=== PATIENT | female | born 1995 | race Caucasian/White ===

== ENCOUNTER 2020-02-02 16:36 | Outpatient (REF) | payer OTHER, SELFPAY | END 2020-02-02 16:37 | disposition home or self-care (01) | LOC: HO.LNP 16:36 | PROVIDERS: Visit Provider Nurse Practitioner Family | DX: Z20.828 Contact with and (suspected) exposure to other viral communicable diseases (principal) | CPT/HCPCS: U0003 ==

== ENCOUNTER 2020-02-04 11:12 | Outpatient (REF) | payer OTHER, SELFPAY ==
[2020-02-04 14:05] LABS: MANUAL DIFF FLAG NO
[2020-02-04 14:07] LABS: Basophils Percent Auto 0.6 % (0-2); Eosinophils Absolute Auto 0.2 X10*3/uL (0.0-0.4); Eosinophils Percent Auto 3.5 % (0-4); Hematocrit 41.2 % (37-47); Hemoglobin 14.1 g/dl (12.0-16.0); Imm Gran Abs Auto 0.02 X10*3/uL (0.00-0.03); Imm Gran Pct Auto 0.3 % (0.0-0.4); Lymphocytes Absolute Auto 2.8 X10*3/uL (1.2-4.9); Lymphocytes Percent Auto 41.6 % (20-40); Mean Corpuscular HGB Conc 34.2 g/dl (31.0-35.0); Mean Corpuscular Hemoglobin 33.9 pg (27.0-33.0); Mean Platelet Volume 10.2 fL (9.4-12.3); Monocytes Absolute Auto 0.6 X10*3/uL (0.1-1.2); Monocytes Percent Auto 8.8 % (2-11); Neutrophils Absolute Auto 3.1 X10*3/uL (2.0-8.3); Neutrophils Percent Auto 45.2 % (45-73); Platelet Count 379 X10*3/uL (160-400); Red Blood Count 4.16 X10*6/uL (4.20-5.50); Red Cell Distribution Width 11.7 % (11.0-16.0); White Blood Count 6.8 X10*3/uL (4.8-10.8)
[2020-02-04 14:41] LABS: Anion Gap 13 (12-20); Blood Urea Nitrogen 9 mg/dL (9-16); Calcium 9.5 mg/dL (8.4-10.2); Carbon Dioxide 27 mmol/L (22-29); Chloride 100 mmol/L (96-108); Cholesterol 224 mg/dL; Estimated Glomerular Filt Rate > 60; Glucose Fasting 89 mg/dL (60-99); HDL Cholesterol 93 mg/dL; LDL Cholesterol Calculated 121 mg/dl; Potassium 4.4 mmol/l (3.3-5.1); Sodium 136 mmol/L (135-145); Triglycerides 52 mg/dL
[2020-02-04 15:00] LABS: TSH reflex Free T4 0.65 mIU/mL (0.32-4.0)
== END 2020-02-04 11:13 | disposition home or self-care (01) ==
LOC: HO.HMGCLDS 11:12
PROVIDERS: PCP Internal Medicine; Visit Provider Nurse Practitioner Family
DX: R11.2 Nausea with vomiting, unspecified (principal)
CPT/HCPCS: 36415; 80048; 80061; 84443; 85025

== ENCOUNTER 2021-05-25 10:31 | Outpatient (REF) | payer OTHER, SELFPAY ==
[2021-05-25 11:43] LABS: MANUAL DIFF FLAG NO
[2021-05-25 11:50] LABS: Basophils Absolute Auto 0.1 X10*3/uL (0.0-0.2); Basophils Percent Auto 0.7 % (0-2); Eosinophils Absolute Auto 0.3 X10*3/uL (0.0-0.4); Eosinophils Percent Auto 3.1 % (0-4); Hemoglobin 13.2 g/dl (12.0-16.0); Imm Gran Abs Auto 0.02 X10*3/uL (0.00-0.03); Imm Gran Pct Auto 0.2 % (0.0-0.4); Lymphocytes Absolute Auto 2.2 X10*3/uL (1.2-4.9); Lymphocytes Percent Auto 24.2 % (20-40); Mean Corpuscular HGB Conc 34.7 g/dl (31.0-35.0); Mean Corpuscular Hemoglobin 34.5 pg (27.0-33.0); Mean Corpuscular Volume 99.2 fL (80.0-98.0); Mean Platelet Volume 9.9 fL (9.4-12.3); Monocytes Absolute Auto 0.6 X10*3/uL (0.1-1.2); Monocytes Percent Auto 6.5 % (2-11); Neutrophils Percent Auto 65.3 % (45-73); Platelet Count 345 X10*3/uL (160-400); Red Blood Count 3.83 X10*6/uL (4.20-5.50); Red Cell Distribution Width 11.5 % (11.0-16.0); White Blood Count 9.2 X10*3/uL (4.8-10.8)
[2021-05-25 12:12] LABS: Alanine Aminotransferase 14 U/L (0-31); Albumin Level 4.1 g/dL (3.5-5.0); Alkaline Phosphatase 44 U/L (39-117); Anion Gap 10 (12-20); Aspartate Amino Transferase 14 U/L (5-31); Bilirubin Total 0.4 mg/dL (0.0-1.0); Blood Urea Nitrogen 8 mg/dL (9-16); Calcium 8.7 mg/dL (8.4-10.2); Carbon Dioxide 25 mmol/L (22-29); Chloride 105 mmol/L (96-108); Cholesterol 167 mg/dL; Estimated Glomerular Filt Rate > 60; Glucose Fasting 85 mg/dL (60-99); HDL Cholesterol 68 mg/dL; LDL Cholesterol Calculated 93 mg/dl; Potassium 4.2 mmol/L (3.3-5.1); Sodium 136 mmol/L (135-145); Total Protein 6.5 g/dL (6.5-8.0); Triglycerides 33 mg/dL
[2021-05-25 12:33] LABS: TSH reflex Free T4 0.46 uIU/mL (0.32-4.0)
== END 2021-05-25 10:32 | disposition home or self-care (01) ==
LOC: HO.HMGCLDS 10:31
PROVIDERS: PCP Internal Medicine; Visit Provider Internal Medicine
DX: Z00.01 Encounter for general adult medical examination with abnormal findings (principal); F90.9 Attention-deficit hyperactivity disorder, unspecified type
CPT/HCPCS: 36415; 80053; 80061; 84443; 85025

== ENCOUNTER 2023-06-10 15:19 | Outpatient (AMB) | payer OTHER, SELFPAY ==
--- NOTE | 2023-06-10 15:22 | A.OFFPC_ITS ---
Vital Signs 06/10/23 15:23 Height 5 ft 2 in Weight 155 lb 8 oz BMI 28.4 BP 122/70 Blood Pressure Location Rt brachial Position Sitting Pulse 83 Pulse Source Pulse Oximeter Pulse Oximetry (%) 99 Oxygen Delivery Method Room Air Intake Visit Reasons: Annual PE Is last menstrual period known: No Allergies cats, dogs, pollen, mold, glut Allergy (Unknown, Uncoded 05/22/21 10:47) itchy eyes, upper respiratory congestion nickel Allergy (Unknown, Uncoded 05/22/21 10:47) rash Medication List - Last Reconciled 06/10/23 by Grayson Garza MD bupropion HCl XL 300 mg PO QAM 90 days Tobacco use date assessed: 06/10/23 Dental Screening Dental Screen Date: 06/10/23 Did you have a dental visit in the last 12 months?: Yes Did you have a dental problem in the last 6 months where you did not have access to dental care?: No Was dental information given to patient?: Patient has dentist HPI Annual PE HPI Details Patient is 18-year-old female came in today for her annual physical exam Patient suffer from ADHD and is on medication through Psychiatry She is in need of new OBGYN, patient had IUD placed 2 years ago and she wants that removed BMI is elevated placed order for labs to be done fasting She offer no complaints today [facility] Medical History Establishing care with new doctor, encounter for ADHD Surgical History No pertinent past surgical history Family History Father Pancreatic cancer Mother Heart murmur Other Mental health disorder Substance use disorder Social History Housing: Apartment Alcohol intake: current Alcohol intake frequency: a few times a week Patient Tobacco Use Status: Current someday Tobacco user Tobacco use type: Cigarette Years Smoked: 3 years e-Cigarette/Vaping Use: Former Use service: No Current occupational status: employed Cognitive needs: No Hearing needs: No Vision needs: No Questionnaire PHQ-9 Over the last 2 weeks, how often have you been bothered by any of the following problems? 1. Little interest or pleasure in doing things: not at all 2. Feeling down, depressed, or hopeless: not at all 3. Trouble falling or staying asleep, or sleeping too much: not at all 4. Feeling tired or having little energy: several days 5. Poor appetite or overeating: several days 6. Feeling bad about yourself - or that you are a failure or have let yourself or your family down: several days 7. Trouble concentrating on things, such as reading the newspaper or watching television: several days 8. Moving or speaking so slowly that other people could have noticed. Or the opposite - being so fidgety or restless that you have been moving around a lot more than usual: several days 9. Thoughts that you would be better off or of hurting yourself in some way: several days Total score: 6 Depression Screening Interpretation: Negative Depression Screening Done: Yes 60323 - PHQ-9 Billing: Yes Source: Developed by Drs. Parish Altamirano, Yolanda Ring, Brandon Wilkerson and colleagues, with an educational oni from [employer] - [place]. Thrive Questionnaire Date Thrive assessed: 06/10/23 I am a: Patient What is your living situation today?: I have a steady place to live Within the past 12 months, did the food you bought not last and you didn't have the money to get more?: Never true Within the past 12 months, did you worry whether your food would run out before you got money to buy more?: Never true Do you have trouble paying for medicines?: No Do you have trouble getting transportation to medical appointments?: No Do you have trouble paying your heating and electricity bill?: No Do you have trouble taking care of your child, family member or friend?: No Do you have trouble with day-to-day activities such as bathing, preparing meals, shopping, managing finances, etc.?: No Are you currently unemployed and looking for a job?: No Are you interested in more education?: No Please select the resources that you would like help with: None Currently or been in a relationship where the following occur: no concerns reported THRIVE Score: 0 AUDIT C Alcohol Use Questionnaire (AUDIT-C) 1. How often do you have a drink containing alcohol?: Monthly or less 2. How many drinks containing alcohol do you have on a typical day when you are drinking?: 1 or 2 3. How often do you have six or more drinks on one occasion?: Never Total Score: 1 Score Reviewed/Action Taken: Yes GERTRUDE-7 AMB Questionnaire GERTRUDE-7 Date GERTRUDE - 7 assessed: 06/10/23 Feeling nervous, anxious, or on edge: 1 = Several days Not being able to stop or control worryin = Several days Worrying too much about different things: 1 = Several days Trouble relaxin = Several days Being so restless that it is hard to sit still: 2 = More than half the days Becoming easily annoyed or irritable: 1 = Several days Feeling afraid as if something awful might happen: 0 = Not at all Total GERTRUDE-7 score (0-4 normal; 5-9 mild; 10-14 moderate; 15-21 severe): 7 Source: Developed by Drs. Parish Altamirano, Yolanda Ring, Brandon Wilkerson and colleagues, with an educational oni from [employer] - [place]. GERTRUDE-7 Assessment Billing GERTRUDE-7 Assessment Tool: GERTRUDE-7 Assessment 96035 Review of Systems Const Denies chills, Denies fever(s) and Denies headache(s) Eyes Denies blurry vision ENT Denies headache(s), Denies nasal discharge, Denies nasal obstruction, Denies odynophagia and Denies sinus pain Card Denies chest pain at rest and Denies chest pain with activity Resp Denies cough and Denies hemoptysis GI Denies diarrhea, Denies odynophagia, Denies vomiting and Denies hematemesis Reports as per HPI Musc Denies abnormal gait Skin/Breast Reports as per HPI Neuro Denies Neuro-related abnormal movements, Denies Abnormal speech present, Denies abnormal gait, Denies headache(s) and Denies Sensory deficit (Neuro) Psych Denies mood swings and Denies paranoia Endo Reports as per HPI Nolberto/Lymph Reports as per HPI Aller/Immun Reports as per HPI Physical exam (Primary Care) Vital Signs: Last Vital Signs Pulse 83 06/10/23 15:23 BP 122/70 06/10/23 15:23 Pulse Ox 99 06/10/23 15:23 Oxygen Delivery Method Room Air 06/10/23 15:23 BMI result Body Mass Index 28.4 Tobacco/Smoking Status: Tobacco use Status Tobacco use date assessed 06/10/23 06/10/23 15:26 Patient Tobacco Use Status Current someday Tobacco 06/10/23 15:26 Tobacco use type Cigarette 06/10/23 15:26 e-Cigarette/Vaping Use Former Use 06/10/23 15:26 PHQ-9: PHQ-9 Score PHQ-9: Total score 6 06/10/23 15:48 Depression Screening Interpretation: Negative Thrive Assessment: Date of Thrive Assessment Date Thrive assessed 06/10/23 06/10/23 15:46 Currently or been in a relationship where the following occur: no concerns reported Const General: cooperative, comfortable and no acute distress Orientation/consciousness: patient oriented x3 HENMT Head: Yes normocephalic and Yes atraumatic Eyes General: appearance normal, both eyes and all related structures Pupils: Equal, round and reactive pupils present EOM: EOMs intact bilaterally Neck Neck: Yes supple and No lymphadenopathy Thyroid: Thyroid normal Lymphatic: no lymphadenopathy noted Resp Effort & Inspection: normal respiratory effort and able to speak in complete sentences Auscultation: clear to auscultation bilaterally Cardio Heart sounds: S1 normal heart sound present and S2 normal heart sound present GI Palpation (GI): Soft to palpation and nontender Auscultation: normal bowel sounds General: Yes no CVA tenderness Back/Spine/Pelvis Back: no CVA tenderness Skin General skin exam: elasticity normal and turgor normal Neuro General: patient oriented x3 and gait normal Cranial nerves: Yes Equal, round and reactive pupils present Speech: No Abnormal speech present Sensory Exam: No Sensory deficit (Neuro) Coordination: tandem gait normal and Romberg test negative Extrem General: Yes normal exam except as noted and No edema Assessment and Plan Assessment & Plan (1) Encounter for general adult medical examination with abnormal findings: Code(s): Z00.01 - Encounter for general adult medical examination with abnormal findings (2) ADHD: Code(s): F90.9 - Attention-deficit hyperactivity disorder, unspecified type Qualifiers: Attention deficit-hyperactivity disorder type: unspecified Qualified Code(s): F90.9 - Attention-deficit hyperactivity disorder, unspecified type (3) Overweight (BMI 25.0-29.9): Code(s): E66.3 - Overweight Plan Patient is 18-year-old female came in today for her annual physical exam Patient suffer from ADHD and is on medication through Psychiatry She is in need of new OBGYN, patient had IUD placed 2 years ago and she wants that removed BMI is elevated placed order for labs to be done fasting She offer no complaints today Orders: Orders Comprehensive [place]. Panel Fast Today E66.3 - Overweight, F90.9 - Attention- deficit hyperactivity disorder, unspecified type, Z00.01 - Encounter for general adult medical examination with abnormal findings Lipid Panel Today E66.3 - Overweight, F90.9 - Attention-deficit hyperactivity disorder, unspecified type, Z00.01 - Encounter for general adult medical examination with abnormal findings Complete Blood Count Auto Diff Today E66.3 - Overweight, F90.9 - Attention- deficit hyperactivity disorder, unspecified type, Z00.01 - Encounter for general adult medical examination with abnormal findings Coding Level of Care Code Est Pt Prev Care 18-39y(94875) Diagnoses Encounter for general adult medical examination with abnormal findings Z00.01 Attention deficit hyperactivity disorder (ADHD), unspecified ADHD type F90.9 Attention deficit-hyperactivity disorder type: unspecified Overweight (BMI 25.0-29.9) E66.3 Additional Codes GERTRUDE-7 Assessment Billing - GERTRUDE-7 Assessment Tool: GERTRUDE-7 Assessment 75674 ([id number])
[2023-06-10 15:23] VITALS: BP 122/70; PULSE 83; O2SAT 99; BMI 28.4
== END 2023-06-10 15:50 | disposition home or self-care (01) ==
PROVIDERS: Visit Provider Internal Medicine
DX: Z00.00 Encounter for general adult medical examination without abnormal findings (principal); F90.9 Attention-deficit hyperactivity disorder, unspecified type; E66.3 Overweight; Z68.28 Body mass index [BMI] 28.0-28.9, adult
CPT/HCPCS: 99395

== ENCOUNTER 2023-06-19 12:03 | Outpatient (REF) | payer OTHER, SELFPAY ==
[2023-06-19 13:09] LABS: MANUAL DIFF FLAG NO
[2023-06-19 13:18] LABS: Basophils Absolute Auto 0.1 X10*3/uL (0.0-0.2); Basophils Percent Auto 0.7 % (0-2); Eosinophils Absolute Auto 0.6 X10*3/uL (0.0-0.4); Eosinophils Percent Auto 8.2 % (0-4); Hematocrit 38.7 % (37.0-47.0); Hemoglobin 13.1 g/dl (12.0-16.0); Imm Gran Abs Auto 0.02 X10*3/uL (0.00-0.03); Imm Gran Pct Auto 0.3 % (0.0-0.4); Lymphocytes Absolute Auto 2.4 X10*3/uL (1.2-4.9); Lymphocytes Percent Auto 35.3 % (20-40); Mean Corpuscular HGB Conc 33.9 g/dl (31.0-35.0); Mean Corpuscular Hemoglobin 33.8 pg (27.0-33.0); Mean Corpuscular Volume 99.7 fL (80.0-98.0); Mean Platelet Volume 9.9 fL (9.4-12.3); Monocytes Absolute Auto 0.6 X10*3/uL (0.1-1.2); Monocytes Percent Auto 8.2 % (2-11); Neutrophils Absolute Auto 3.2 x10*3/uL (2.0-8.3); Neutrophils Percent Auto 47.3 % (45-73); Platelet Count 337 X10*3/uL (160-400); Red Blood Count 3.88 X10*6/uL (4.20-5.50); Red Cell Distribution Width 11.9 % (11.0-16.0); White Blood Count 6.8 X10*3/uL (4.8-10.8)
[2023-06-19 13:50] LABS: Alanine Aminotransferase 12 U/L (0-31); Alkaline Phosphatase 42 U/L (39-117); Anion Gap 11 (12-20); Aspartate Amino Transferase 13 U/L (5-31); Bilirubin Total 0.5 mg/dL (0.0-1.0); Blood Urea Nitrogen 5 mg/dL (9-16); Calcium 9.4 mg/dL (8.4-10.2); Carbon Dioxide 26 mmol/L (22-29); Chloride 105 mmol/L (96-108); Cholesterol 166 mg/dL (<200); Estimated Glomerular Filt Rate > 60; Glucose Fasting 92 mg/dL (60-99); HDL Cholesterol 61 mg/dL (>40); LDL Cholesterol Calculated 93 mg/dL (<100); Potassium 3.9 mmol/L (3.3-5.1); Sodium 138 mmol/L (135-145); Total Protein 6.4 g/dL (6.5-8.0); Triglycerides 61 mg/dL (<150)
== END 2023-06-19 12:04 | disposition home or self-care (01) ==
LOC: HO.HMGCLDS 12:03
PROVIDERS: PCP Internal Medicine; Visit Provider Internal Medicine
DX: Z00.01 Encounter for general adult medical examination with abnormal findings (principal); E66.3 Overweight; F90.9 Attention-deficit hyperactivity disorder, unspecified type
CPT/HCPCS: 36415; 80053; 80061; 85025

== ENCOUNTER 2024-06-22 12:25 | Outpatient (AMB) | payer OTHER, SELFPAY ==
[2024-06-22 12:33] VITALS: BP 118/74; PULSE 84; O2SAT 99; BMI 28.8
--- NOTE | 2024-06-22 12:33 | MHC.PC.OV ---
Vital Signs 06/22/24 12:33 Height 5 ft 2 in Weight 157 lb 8 oz BMI 28.8 BP 118/74 Blood Pressure Location Lt brachial Position Sitting Pulse 84 Pulse Source Pulse Oximeter Pulse Oximetry (%) 99 Oxygen Delivery Method Room Air Intake Visit Reasons: Annual PE Allergies cats, dogs, pollen, mold, glut Allergy (Unknown, Uncoded 06/22/24 12:35) itchy eyes, upper respiratory congestion nickel Allergy (Unknown, Uncoded 06/22/24 12:35) rash Medication List - Last Reconciled 06/22/24 by Grayson Garza MD dextroamphetamine-amphetamine 10 mg 1 tab PO DAILY Tobacco use date assessed: 06/22/24 Dental Screening Dental Screen Date: 06/22/24 Did you have a dental visit in the last 12 months?: Yes Did you have a dental problem in the last 6 months where you did not have access to dental care?: No Was dental information given to patient?: Patient has dentist HPI Annual PE HPI Details Physical exam appointment - The patient is a 28-year-old female presenting for a wellness exam and follow-up on existing conditions. - The patient reported having celiac disease, diagnosed in childhood, and has been managing it independently, doing well avoiding gluten and following a grain-free diet. - Symptoms previously associated with celiac disease included bloating, joint pain, constipation (as opposed to diarrhea), and rare occurrences of rash, last reported approximately 10 years ago. - The patient had an IUD removed in the past; specific timeline not recalled. Goes to [facility] in [facility] - The patient expressed curiosity about vitamin levels, specifically vitamin D due to the association of deficiencies in patients with celiac disease. - Prior labs conducted in June of the previous year showed normal CBC, electrolytes, kidney function, liver enzymes, and cholesterol levels. Health Maintenance - The patient expressed interest in assessing vitamin D levels, and I will include a check for vitamin B due to the relationship with celiac disease. - Discussion on the importance of a gluten-free diet and vitamin supplements due to celiac disease. - Recommendation for annual lab tests to monitor overall health as part of routine wellness examination. - continue follow up with [facility] Patient Instructions - Schedule annual physical exams. - Follow a gluten-free diet due to celiac disease. - Follow up with lab testing, including checking vitamin D and B levels. - If any health concerns arise, the patient should contact the clinic. Review of Systems - General: No fever no chills - Neurological: No headaches no dizziness - Ear nose throat: No sore throat no hearing difficulty no ear pain - Cardiovascular: No syncope, no chest pain, no palpitations - Gastrointestinal: No nausea vomiting or diarrhea - Endocrine: No polyuria polydipsia no heat intolerance - Genitourinary: No dysuria - Skin: No new complaints Physical Exam General: Cooperative, healthy appearing, comfortable, no acute distress Orientation: Patient oriented x3 Limitations: None Head: Normal to inspection Ears: Within normal limit visually Nose: Normal external nose present Face and sinus: Normal facial exam Eyes: Appearance normal, extraocular movement intact pupils reactive Neck: Normal visual inspection and supple Respiratory: Normal respiratory effort and able to speak in complete sentences. Clear to auscultation, no stridor Cardiovascular: S1 and S2 RRR Breast exam benign GI: Normal to inspection. Soft to palpation and nontender Skin: Turgor normal, no acute findings, Neuro: Patient oriented x3, motor sensory intact, balance intact, tandem pass Extremities: Normal to inspection, range of motion joints intact [facility] Medical History Establishing care with new doctor, encounter for ADHD Surgical History No pertinent past surgical history Family History Father Pancreatic cancer Mother Heart murmur Other Mental health disorder Substance use disorder Social History Housing: Apartment Alcohol intake: current Alcohol intake frequency: a few times a week Patient Tobacco Use Status: Current someday Tobacco user Tobacco use type: Cigarette Years Smoked: 3 years e-Cigarette/Vaping Use: Former Use service: No Current occupational status: employed Cognitive needs: No Hearing needs: No Vision needs: No Questionnaire PHQ-9 Over the last 2 weeks, how often have you been bothered by any of the following problems? 1. Little interest or pleasure in doing things: not at all 2. Feeling down, depressed, or hopeless: not at all 3. Trouble falling or staying asleep, or sleeping too much: several days 4. Feeling tired or having little energy: several days 5. Poor appetite or overeating: several days 6. Feeling bad about yourself - or that you are a failure or have let yourself or your family down: not at all 7. Trouble concentrating on things, such as reading the newspaper or watching television: several days 8. Moving or speaking so slowly that other people could have noticed. Or the opposite - being so fidgety or restless that you have been moving around a lot more than usual: not at all 9. Thoughts that you would be better off or of hurting yourself in some way: not at all Total score: 4 Depression Screening Interpretation: Negative Depression Screening Done: Yes 29599 - PHQ-9 Billing: Yes Source: Developed by Drs. Parish Altamirano, Yolanda Ring, Brandon Wilkerson and colleagues, with an educational oni from [employer]. Thrive Questionnaire Date Thrive assessed: 06/22/24 I am a: Patient What is your living situation today?: I have a steady place to live Within the past 12 months, did the food you bought not last and you didn't have the money to get more?: Never true Within the past 12 months, did you worry whether your food would run out before you got money to buy more?: Never true Do you have trouble paying for medicines?: No Do you have trouble getting transportation to medical appointments?: No Do you have trouble paying your heating and electricity bill?: No Do you have trouble taking care of your child, family member or friend?: No Do you have trouble with day-to-day activities such as bathing, preparing meals, shopping, managing finances, etc.?: No Are you currently unemployed and looking for a job?: No Are you interested in more education?: No Please select the resources that you would like help with: None Currently or been in a relationship where the following occur: No concerns reported THRIVE Score: 0 AUDIT C Alcohol Use Questionnaire (AUDIT-C) 1. How often do you have a drink containing alcohol?: Monthly or less 2. How many drinks containing alcohol do you have on a typical day when you are drinking?: 1 or 2 3. How often do you have six or more drinks on one occasion?: Less than monthly Total Score: 2 Score Reviewed/Action Taken: Yes GERTRUDE-7 AMB Questionnaire GERTRUDE-7 Date GERTRUDE - 7 assessed: 06/22/24 Feeling nervous, anxious, or on edge: 1 = Several days Not being able to stop or control worryin = Not at all Worrying too much about different things: 0 = Not at all Trouble relaxin = Several days Being so restless that it is hard to sit still: 1 = Several days Becoming easily annoyed or irritable: 1 = Several days Feeling afraid as if something awful might happen: 0 = Not at all Total GERTRUDE-7 score (0-4 normal; 5-9 mild; 10-14 moderate; 15-21 severe): 4 Source: Developed by Drs. Parish Altamirano, Yolanda Ring, Brandon Wilkerson and colleagues, with an educational oni from [employer]. GERTRUDE-7 Assessment Billing GERTRUDE-7 Assessment Tool: GERTRUDE-7 Assessment 15301 Physical exam (Primary Care) Vital Signs: Last Vital Signs Pulse 84 06/22/24 12:33 BP 118/74 06/22/24 12:33 Pulse Ox 99 06/22/24 12:33 Oxygen Delivery Method Room Air 06/22/24 12:33 BMI result Body Mass Index 28.8 Tobacco/Smoking Status: Tobacco use Status Tobacco use date assessed 06/22/24 06/22/24 12:37 Patient Tobacco Use Status Current someday Tobacco 06/22/24 12:37 Tobacco use type Cigarette 06/22/24 12:37 e-Cigarette/Vaping Use Former Use 06/22/24 12:37 PHQ-9: PHQ-9 Score PHQ-9: Total score 4 06/22/24 12:52 Depression Screening Interpretation: Negative Thrive Assessment: Date of Thrive Assessment Date Thrive assessed 06/22/24 06/22/24 12:37 Currently or been in a relationship where the following occur: No concerns reported Coding Level of Care Code Est Pt Level 3 (63843) Est Pt Prev Care 18-39y(04025) Diagnoses Encounter for general adult medical examination with abnormal findings Z00.01 Celiac disease K90.0 Overweight (BMI 25.0-29.9) E66.3 Attention deficit hyperactivity disorder (ADHD), unspecified ADHD type F90.9 Attention deficit-hyperactivity disorder type: unspecified Additional Codes GERTRUDE-7 Assessment Billing - GERTRUDE-7 Assessment Tool: GERTRUDE-7 Assessment 53524 ([id number]) PHQ-9 - 98673 - PHQ-9 Billing: Yes ([id number]) Assessment & Plan Assessment & Plan (1) Encounter for general adult medical examination with abnormal findings: Code(s): Z00.01 - Encounter for general adult medical examination with abnormal findings Category: Medical (2) Celiac disease: Code(s): K90.0 - Celiac disease Category: Medical (3) Overweight (BMI 25.0-29.9): Code(s): E66.3 - Overweight Category: Medical (4) ADHD: Code(s): F90.9 - Attention-deficit hyperactivity disorder, unspecified type Category: Medical Qualifiers: Attention deficit-hyperactivity disorder type: unspecified Qualified Code(s): F90.9 - Attention-deficit hyperactivity disorder, unspecified type Plan Physical exam appointment - The patient is a 28-year-old female presenting for a wellness exam and follow-up on existing conditions. - The patient reported having celiac disease, diagnosed in childhood, and has been managing it independently, doing well avoiding gluten and following a grain-free diet. - Symptoms previously associated with celiac disease included bloating, joint pain, constipation (as opposed to diarrhea), and rare occurrences of rash, last reported approximately 10 years ago. - The patient had an IUD removed in the past; specific timeline not recalled. [facility] in [facility] - The patient expressed curiosity about vitamin levels, specifically vitamin D due to the association of deficiencies in patients with celiac disease. - Prior labs conducted in June of the previous year showed normal CBC, electrolytes, kidney function, liver enzymes, and cholesterol levels. Health Maintenance - The patient expressed interest in assessing vitamin D levels, and I will include a check for vitamin B due to the relationship with celiac disease. - Discussion on the importance of a gluten-free diet and vitamin supplements due to celiac disease. - Recommendation for annual lab tests to monitor overall health as part of routine wellness examination. - continue follow up with [facility] Patient Instructions - Schedule annual physical exams. - Follow a gluten-free diet due to celiac disease. - Follow up with lab testing, including checking vitamin D and B levels. - If any health concerns arise, the patient should contact the clinic. Orders: Orders Comprehensive [place]. Panel Fast Today E66.3 - Overweight, F90.9 - Attention-deficit hyperactivity disorder, unspecified type, K90.0 - Celiac disease, Z00.01 - Encounter for general adult medical examination with abnormal findings Lipid Panel Today E66.3 - Overweight, F90.9 - Attention-deficit hyperactivity disorder, unspecified type, K90.0 - Celiac disease, Z00.01 - Encounter for general adult medical examination with abnormal findings Vitamin D 25-OH (D2 and D3) Today E66.3 - Overweight, F90.9 - Attention-deficit hyperactivity disorder, unspecified type, K90.0 - Celiac disease, Z00.01 - Encounter for general adult medical examination with abnormal findings Vitamin B12 Today E66.3 - Overweight, F90.9 - Attention-deficit hyperactivity disorder, unspecified type, K90.0 - Celiac disease, Z00.01 - Encounter for general adult medical examination with abnormal findings Folate Today E66.3 - Overweight, F90.9 - Attention-deficit hyperactivity disorder, unspecified type, K90.0 - Celiac disease, Z00.01 - Encounter for general adult medical examination with abnormal findings Complete Blood Count Auto Diff Today E66.3 - Overweight, F90.9 - Attention-deficit hyperactivity disorder, unspecified type, K90.0 - Celiac disease, Z00.01 - Encounter for general adult medical examination with abnormal findings TSH reflex Free T4 Today E66.3 - Overweight, F90.9 - Attention-deficit hyperactivity disorder, unspecified type, K90.0 - Celiac disease, Z00.01 - Encounter for general adult medical examination with abnormal findings UA CC w/rflx Micro + Cult Today E66.3 - Overweight, F90.9 - Attention-deficit hyperactivity disorder, unspecified type, K90.0 - Celiac disease, Z00.01 - Encounter for general adult medical examination with abnormal findings Ferritin Today E66.3 - Overweight, F90.9 - Attention-deficit hyperactivity disorder, unspecified type, K90.0 - Celiac disease, Z00.01 - Encounter for general adult medical examination with abnormal findings
--- OUTSIDE RECORDS SUMMARY | 2024-06-22 13:44 | XMS_ITS | Encounter Summary ---
Author Organization [facility] Address [address] [place] [id number] Phone Care Team Providers Care Inspector And Adjuster [employer] Head Name Role Phone Unavailable Primary Care Provider Unavailabl e Encounter Details Date Type Department Care Team (Late st Contact Info) Description 06/10/2013 Documentation [facility] [place] [address] Family Medicine, [place] [address] Social History Tobacco Use Types Packs/Day Years Used Date Smoking Tobacco: Never Assessed Comments Unknown Sex and Gender Information Value Date Recorded Sex Assigned at Not on file Legal Sex Female 4:55 PM EDT Gender Identity Not on file Sexual Orientation Not on file documented as of this encounter Plan of Treatment Not on file documented as of this encounter Visit Diagnoses Not on filedocumented in this encounter
--- OUTSIDE RECORDS SUMMARY | 2024-06-22 13:44 | XMS_ITS | Encounter Summary ---
Author Organization [facility] Address [address] [place] [phone] Phone Care Team Providers Care Lpc Name Role Phone Unavailable Primary Care Provider Unavailabl e Encounter Details Date Type Department Care Team (Late st Contact Info) Description 05/10/2010 Documentation [facility] [place] Family Medicine [address] [place] [address] Family Medicine, Physician [address] [place] [address] Social History Tobacco Use Types Packs/Day Years [...]
--- OUTSIDE RECORDS SUMMARY | 2024-06-22 13:44 | XMS_ITS | Encounter Summary ---
Author Organization [facility] Address [address] [place] [phone] Phone Care Team Providers Care Vp Of Technology Name Role Phone Unavailable Primary Care Provider Unavailabl e Encounter Details Date Type Department Care Team (Late st Contact Info) Description 10/03/2016 Conversion Encounter [facility] - [address] [address] Social History Tobacco Use Types Packs/Day Years Used Date Smoking Tobacco: Never Comments:Never smoker Comments Unknown Sex and Gender Information Value Date Recorded Sex Assigned at Not on file Legal Sex Female 4:55 PM EDT Gender Identity Not on file Sexual Orientation Not on file documented as of this encounter Plan of Treatment Not on file documented as of this encounter Visit Diagnoses Not on filedocumented in this encounter
--- OUTSIDE RECORDS SUMMARY | 2024-06-22 13:44 | XMS_ITS | Clinical Summary ---
Author Organization [facility] Address [address] [place] [phone] Phone Care Team Providers Care Tax Compliance Representative Name Role Phone Unavailable Primary Care Provider Unavailabl e Immunizations Immunization Administration Dates Next Due DTP 04/23/1995, 5,1993, 994 DTaP 5 08/28/1998 H1N1 02/23/2009 HPV, Quadrivalent 10/16/2007,06/10/2007,03/25/19 08 Hep A, ped/adol 11/22/2008,04/27/2008 Hep B, ped/adol 06/10/1994,1993,1993 Hib (PRP-T) 11/04/1994, 5,1993, 994 Influenza Split 12/23/2012, 2,01/30/2011, 010 Influenza, injectable, trivalent 009,01/06/2008,03/25/2007, 006,12/19/2004,12/15/2003 MMR 08/24/1997,11/04/1994 Meningococcal Conj (Menactra) MCV4P 03/25/2007 OPV 08/28/1998, 5,1993, 994 Tdap 03/18/2005 Varicella 04/27/2008,10/17/1998 Family History Relation Name Status Comments Father Alive Father: Alive a nd well Mother Alive Mother: Alive a nd well Other Family history of Obesity Social History Tobacco Use Types Packs/Day Years Used Date Smoking Tobacco: Never Comments:Never smoker Comments Unknown Sex and Gender Information Value Date Recorded Sex Assigned at Not on file Legal Sex Female 4:55 PM EDT Gender Identity Not on file Sexual Orientation Not on file Last Filed Vital Signs Vital Sign Reading Time Taken Comments Blood Pressure 100/62 01/26/2014 12:00 AM EST Pulse 68 01/19/2014 12:00 AM EST Temperature 36.3 ??C (97.4 ??F) 01/19/2014 12:[address] Respiratory Rate - - Oxygen Saturation - - Inhaled Oxygen Concentration - - Weight 60.8 kg (134 lb) 01/26/2014 12:00 AM EST Height 156.8 cm (5' 1.75 ) 01/26/2014 12:[address] Body Mass Index 24.71 01/26/2014 12:00 AM EST Plan of Treatment Health Maintenance Due Date Last Done Comments DTaP,Tdap,and Td Vaccines (7 - Td or Tdap) 03/18/2015 03/18/2005, 08/28/1998, 04/23/1995, Additional history exists Influenza Vaccines (#1) 2023 12/24/19 13, 12/03/2011, 01/30/2011, Additional history exists COVID-19 Vaccine ( season) 2023 Hepatitis B Vaccines Completed 06/10/1994, 1993, 1993 HIB Vaccines Completed 11/04/1994, 02/18, 1993, Additional history exists MMR Vaccines Completed 08/24/1997, 11/04/1994 IPV Vaccines Completed 08/28/1998, 02/18, 1993, Additional history exists Meningococcal Vaccine Aged Out 03/25/2007 No jose christina eligible based on patient's age to complete this topic HPV Vaccines Completed 10/16/2007, 05/19, 03/25/2007 Varicella Vaccines Completed 04/27/2008, 10/17/1998 Hepatitis A Vaccines Completed 11/22/2008, 04/28/19 09 Men B Vaccine Aged Out No longer elig ible based on patient's age to complete this topic Pneumococcal Vaccine Aged Out No long er eligible based on patient's age to complete this topic Procedures * Due to [place] state law, this organization might not be sharing sensitive test results. Procedure Name Priority Date/Time Associated Diagnosis Comments CHLAMYDIA AND GONORRHEA, AMPLIFIED Routine 01/20/2014 2:31 PM EST from Last 3 Months or Most Recently Relevant to Health Maintenance Results * Due to [place] state law, this organization might not be sharing sensitive test results. * Chlamydia and Gonorrhoea, Amplified (01/20/2014 2:31 PM EST) Pathologist [facility] URINE GC AMP PROBE NEGATIVE [facility] Comment: NO NEISSERIA GONORRHOEAE RNA DETECTED IN THIS PATIENT'S SAMPLE. (REFERENCE RANGE/NORMAL VALUE: NOT DETECTED) NOTE: This test uses client success director-mediated amplification method to detect rRNA from C.Trachomatis and N.Gonorrhoeae. A negative result does not preclude infection. In the case of a negative urine result, testing of an endocervical(female) or urethral(male) specimen is recommended if there is high clinical suspicion of infection. The performance characteristics of this test have not been evaluated in children. The Aptima Combo2 assay is not intended for the evaluation of suspected sexual abuse or for other medico-legal indications. The ordering provider should assess if the patient had consensual sex without risk of sexual abuse. Consult the [facility] if needed. Contact phone number . Therapeutic failure or success cannot be determined with the Aptima Combo2 assay since nucleic acid may persist following appropriate antimicrobial therapy. The Centers for Disease Control and Prevention (CDC) recommends confirmatory retesting using culture or a different nucleic acid amplification test when positive results occur, if indicated. Testing performed or reported by [facility], a Service of [facility], [address] [place] [address] Ritchie Wray MD, PhD, Scientific Aide URINE CHLAMYDIA AMP PROBE NEGATIVE [facility] Comment: NO CHLAMYDIA TRACHOMATIS RNA DETECTED IN THIS PATIENT'S SAMPLE. (REFERENCE RANGE/NORMAL VALUE: NOT DETECTED) 01/20/2014 2:31 PM EST Narrative [facility] - 01/20/2014 2:31 PM EST URINE CHLAMYDIA GC AMP PROBE us Hilda Hernandez NP LAB MICROBIOLOGY - GENERAL OR DERABLES Final Result [facility] [address] [place] [id number], from Last 3 Months or Most Recently Relevant to Health Maintenance
--- OUTSIDE RECORDS SUMMARY | 2024-06-22 13:44 | XMS_ITS | Encounter Summary ---
Author Organization [facility] Address [address] [place] [phone] Phone Care Team Providers Care Rejogger Name Role Phone Unavailable Primary Care Provider Unavailabl e Encounter Details Date Type Department Care Team (Late st Contact Info) Description 05/03/2009 Documentation [facility] [place] [address] [place] [address] Family Medicine, Physician [address] [place] [address] Social History Tobacco Use Types Packs/Day Years [...]
--- OUTSIDE RECORDS SUMMARY | 2024-06-22 13:44 | XMS_ITS | Encounter Summary ---
Author Organization [facility] Address [address] [place] [phone] Phone Care Team Providers Care Planner Scheduler Name Role Phone Unavailable Primary Care Provider Unavailabl e Encounter Details Date Type Department Care Team (Late st Contact Info) Description 09/30/2012 Documentation [facility] [place] Family Medicine [address] [place] [address] Family Medicine, Physician [address] [place] [address] Social History Tobacco Use Types Packs/Day Years [...]
== END 2024-06-22 12:53 | disposition home or self-care (01) ==
LOC: HO.HMCC 12:26
PROVIDERS: PCP Internal Medicine; Visit Provider Internal Medicine
DX: Z00.01 Encounter for general adult medical examination with abnormal findings (principal); K90.0 Celiac disease; E66.3 Overweight; Z68.28 Body mass index [BMI] 28.0-28.9, adult; F90.9 Attention-deficit hyperactivity disorder, unspecified type

== ENCOUNTER → 2024-06-22 12:25 | Outpatient (BNVA) | payer OTHER, SELFPAY | PROVIDERS: PCP Internal Medicine; Visit Provider Internal Medicine | DX: Z00.01 Encounter for general adult medical examination with abnormal findings (principal); K90.0 Celiac disease; E66.3 Overweight; Z68.28 Body mass index [BMI] 28.0-28.9, adult; F90.9 Attention-deficit hyperactivity disorder, unspecified type | CPT/HCPCS: 96127 ==